=== PATIENT | female | born 1940 | race Caucasian/White ===

== ENCOUNTER → 2016-04-14 | Outpatient (CLI) | payer MEDICARE ==
[~2016-04-14] MED LIST: ASPIRIN CHILDRE81 MG PO; BACTRIM DS 8001 TAB PO; COZAAR100 MG PO; GABAPENTIN100 MG PO; KLOR-CON M2020 ME1 PO; LANTUS INS100 UNITS/ SC; LEVOTHROID SO0.15 MG PO; METFORMIN1000 MG PO; PHENERGAN 25MG.25 M1 PO; PRAVASTATIN 40M40 MG PO; PRAVASTATIN20 MG PO; PROAIR HFA0.09 MG/AC INH; VERAPAMIL HCL120 MG PO
--- NOTE | 2016-04-27 21:36 | RADIOLOGY REPORT PS360 ---
DEXA SCAN.-BONE DENSITY STUDY HIPS AND LUMBAR SPINE HISTORY: Postmenopausal female TECHNIQUE: DEXA scan hip and lumbar spine The most complete data summary and color graphic presentation of the today's ( and any prior ) DEXA findings are available in PACS. Definition and treatment guidelines included. COMPARISON: August 2013 LUMBAR SPINE: Normal bone density L1 vertebral body demonstrates the lowest T score 0.3 with BMD1.169 g/cm sq Overall mean lumbar L1-L4 T score 0.8 with BMD1.27 g/cm sq . 2014 prior DEXA the mean T score 0.4 with BMD was1.235g/cm sq Thus when comparing today's study to the prior exam there's been a 2.9% increasing mean bone density at the lumbar spine. HIPS: Normal bone density Femoral neck density is best predictor of hip fracture risk . Left femoral neck demonstrates the lowest T score -0.7 with BMD0.94 g/cm sq . Averaging region for today's Hip Mean T score 0.8 with BMD1.114 g/cm sq . 2014 DEXA the T score 1.0 with mean BMD1.129 g/cm sq Thus this reflects a 1.3% decreasein overall mean bone density at the hips in the interval. IMPRESSION 1. LUMBAR SPINE: Normal bone density 2.9% increase in bone density lumbar spine versus 2013 DEXA 2. HIPS:Normal bone density. Normal density Overall at hips as well as at femoral necks 1.3% decrease bone density since 2013 as would be anticipated over this period of time WHO criteria for post-menopausal, Women: Normal: T-score at or above -1 SD Osteopenia: T-score between -1 and -2.5 SD Osteoporosis: T-score at or below -2.5 SD
== END ==
LOC: RAD 04-12 09:00
DX: Z78.0 Asymptomatic menopausal state (principal)

== ENCOUNTER 2016-09-26 10:34 | Inpatient (IN) | payer MEDICARE ==
[~2016-09-26] VITALS: Ht 162.6 cm; Wt 109.9 kg
[~2016-09-26 10:34] MED LIST changes: +ALDACTONE 25MG25 MG PO; +LASIX 40MG. TAB40 MG PO; -LEVOTHROID SO0.15 MG PO; +LEVOTHYROXINE0.15 MG PO; +LOSARTAN POTAS100 MG PO; +MULTI-VITAMIN1 EAC2 PO; +MULTIVITAMIN1 SGL PO; +PRAVASTATIN SOD80 M1 PO; +VENTOLIN H0.09 MG/Ac IH; -VERAPAMIL HCL120 MG PO; +[UNRECOGNIZED DRUG - OTHER] PO
--- OUTSIDE RECORDS SUMMARY | 2016-09-26 10:36 | External Medical Summary Rpt ---
Author Author , KATHY CHAVEZ Address Unknown Phone [email or web address] Support Name Relationship Address Phone LUC, Next Of Kin Maude MARIO +1 MARIA DE JESUS LINDSAY [phone] Purpose Continuity of Care Document - 10-31-2012 through 2016 Problems Code Diagnosis DOS Provider Status 786.50 E03.9 HYPOTHYROID ISM, UNSPECIFIED I50.9 HEART FAILURE, UNSPECIFIED M79.1 MYALGIA R11.10 VOMITING, UNSPECIFIED Z12.31 ENCNTR SCREEN MAMMOGRAM FOR MALIGNANT NEOPLASM OF BREAST Z78.0 ASYMPTOMATI C MENOPAUSAL STATE Allergies, Adverse Reactions, Alerts Type Drug Allergy Adverse Reaction to Substance Substance Reaction Severity Beta-Adrenergic Unknown Unknown Michael Codeine Unknown Unknown Lisinopril Unknown Unknown Medications Na ND Rx Da Fi Fi Am Da Di Ph RX Ph St me C No te ll ll ou ys ag ar # ys at rm s nt no ma ic us Or Da si cy ia de te s n re d Sa 63 09 0 No li 80 -0 ne 70 5- Lo 10 20 ng Fl 07 13 er us 5 h Ac 10 ti ML ve Sy ri ng e ON 00 09 0 No DA 64 -0 NS 16 5- Lo ET 08 20 ng RO 02 13 er N 5 HC Ac L ti 4 ve MG /2 ML AL MA 00 09 0 No PA 90 -0 P 41 5- Lo 32 98 20 ng 5 26 13 er MG 1 Ac TA ti BL ve ET Vital Signs 10-31-2012 14:22 Name Value Interpretat Reference Comment ion Range Body 97.5 [degF] Temperature BP 78 mm[Hg] Diastolic BP Systolic 147 mm[Hg] Heart 82 /min Rate/Pulse O2% 98 % Respiratory 20 /min Rate 10-31-2012 12:46 Name Value Interpretat Reference Comment ion Range Body 97.5 [degF] Temperature 10-31-2012 11:59 Name Value Interpretat Reference Comment ion Range BP 89 mm[Hg] Diastolic BP Systolic 163 mm[Hg] Heart 82 /min Rate/Pulse O2% 98 % Respiratory 20 /min Rate Results Labs Lab Lab Date Result Refere Interp Status Commen Order Detail nces retati t Range on Urinalysis dipstick W Reflex Microscopic panel in Urine (08-30-2016 12:00) Bacteri TRACE O complet a 017 ed [Presen 12:00 ce] in Urine sedimen t by Light microsc opy Erythro NONE 0 complet cytes 017 ed [Presen 12:00 ce] in Urine sedimen t by Light microsc opy Epithel 5-10 0#/hp complet ial 017 f - ed cells.s 12:00 5#/hp quamous f [Presen ce] in Urine sedimen t by Microsc opy high power field Urinalysis dipstick W Reflex Microscopic panel in Urine (08-30-2016 12:00) Appeara CLEAR CLEAR complet nce of 017 ed Urine 12:00 Bilirub NEGATIV NEG complet in 017 E ed [Presen 12:00 ce] in Urine by Test strip Erythro NEGATIV NEG complet cytes 017 E ed [Presen 12:00 ce] in Urine Color YELLOW YELLOW complet of 017 ed Urine 12:00 Ketones NEGATIV NEG complet 017 E ed [Presen 12:00 ce] in Urine by Automat ed test strip Mucus NEGATIV NEG complet [Presen 017 E ed ce] in 12:00 Urine sedimen t by Light microsc opy Nitrite NEGATIV NEG complet 017 E ed [Presen 12:00 ce] in Urine by Test strip Urobili 0.2 NEG complet nogen 017 ed [Presen 12:00 ce] in Urine by Test strip Encounters Encounter Start End Date Code Location Performer Type Date Emergency JULI Sandra MD (ER) 3 12:02 3 14:23 [facility]
--- OUTSIDE RECORDS SUMMARY | 2016-09-26 10:36 | External Medical Summary Rpt ---
Author Author , KATHY CHAVEZ Address Unknown Phone [email or web address] Support Name Relationship Address Phone LUC, Next Of Kin Maude MARIO +1 MARIA DE JESUS LINDSAY [phone] Purpose Continuity of Care Document - 10-31-2012 [...] Sandra MD (ER) 3 12:02 3 14:23 [facility]
--- OUTSIDE RECORDS SUMMARY | 2016-09-26 10:37 | External Medical Summary Rpt ---
Demographics Preferred Language Icelandic Marital Status Unknown Jew Affiliation Unknown Race Unknown Ethnic Group Unknown Author Author , KATHY CHAVEZ Address Unknown Phone Immunization Unable to retrieve immunization data due to connection failure with Immunization Registry. Please try again later.
--- OUTSIDE RECORDS SUMMARY | 2016-09-26 10:37 | External Medical Summary Rpt ---
Demographics Preferred Language Persian Marital Status Unknown Mormon Affiliation Unknown Race Unknown Ethnic Group Unknown Author Author , KATHY CHAVEZ Address Unknown Phone Immunization Unable to retrieve immunization data due to connection failure with Immunization Registry. Please try again later.
--- OUTSIDE RECORDS SUMMARY | 2016-09-26 10:38 | External Medical Summary Rpt ---
Author Author KATHY Raina, [employer] Address Unknown Phone Unavailable Results Basic metabolic panel in Blood Observa Value Referen Units Interpr Notes Date tion ce etation Range Urea 7 - 18 mg/dL High Sep 25 nitrogen NOTIFICAT 2017 9:16 [Mass/vol ION AM ume] in RESULT Serum or Plasma Calcium 8.5 - mg/dL Normal No Sep 25 [Mass/vol 10.1 informati 2016 9:16 ume] in on in AM Serum or source Plasma data Chloride 98 - 107 mmoL/L Low No Sep 25 [Moles/vo informati 2016 9:16 lume] in on in AM Serum or source Plasma data Carbon 21.0 - mmoL/L Normal No Sep 25 dioxide, 32.0 informati 2016 9:16 total on in AM [Moles/vo source lume] in data Serum or Plasma Creatinin 0.55 - mg/dL High No Sep 25 e 1.02 informati 2017 9:16 [Mass/vol on in AM ume] in source Serum or data Plasma Estimated 59- ML/MIN Low alert REFERENCE Sep 25 RANGE: 2017 9:16 glomerula >60 AM r ML/MIN/1. filtratio 73 SQUARE n rate METERSIf (GF this patient is -A merican, then multiply theresult by 1.210. Glucose 74 - 106 mg/dL High No Sep 25 [Mass/vol informati 2016 9:16 ume] in on in AM Serum or source Plasma data Potassium 3.5 - 5.1 mmoL/L Normal No Sep 25 informati 2016 9:16 [Moles/vo on in AM lume] in source Serum or data Plasma Sodium 136 - 145 mmoL/L Low No Sep 25 [Moles/vo informati 2016 9:16 lume] in on in AM Serum or source Plasma data Comprehensive metabolic 2000 panel in Serum or Plasma Observa Value Referen Units Interpr Notes Date ti ce etation Range Albumin/G 1.1 - 1.8 No Normal No Sep 20 lobulin informati informati 2016 8:13 [Mass on in on in AM ratio] in source source Serum or data data Plasma Albumin 3.4 - 5.0 gm/dL Normal No Sep 20 [Mass/vol informati 2016 8:13 ume] in on in AM Serum or source Plasma data Alkaline 46 - 116 U/L Normal No Sep 20 phosphata informati 2016 8:13 se on in AM [Enzymati source c data activity/ volume] in Serum or Plasma Bilirubin 0.2 - 1.0 mg/dL Normal No Sep 20 .total informati 2016 8:13 [Mass/vol on in AM ume] in source Serum or data Plasma Urea 7 - 18 mg/dL High No Sep 20 nitrogen informati 2016 8:13 [Mass/vol on in AM ume] in source Serum or data Plasma Calcium 8.5 - mg/dL Normal No Sep 20 [Mass/vol 10.1 informati 2016 8:13 ume] in on in AM Serum or source Plasma data Chloride 98 - 107 mmoL/L Low No Sep 20 [Moles/vo informati 2016 8:13 lume] in on in AM Serum or source Plasma data Carbon 21.0 - mmoL/L Normal No Sep 20 dioxide, 32.0 informati 2016 8:13 total on in AM [Moles/vo source lume] in data Serum or Plasma Creatinin 0.55 - mg/dL High No Sep 20 e 1.02 informati 2016 8:13 [Mass/vol on in AM ume] in source Serum or data Plasma Estimated 59- ML/MIN Low alert REFERENCE Sep 20 RANGE: 2017 8:13 glomerula >60 AM r ML/MIN/1. filtratio 73 SQUARE n rate METERSIf (GF this patient is -A merican, then multiply theresult by 1.210. Globulin 1.3 - 3.2 gm/dL High No Sep 20 [Mass/vol informati 2016 8:13 ume] in on in AM Serum source data Glucose 74 - 106 mg/dL High No Sep 20 [Mass/vol informati 2016 8:13 ume] in on in AM Serum or source Plasma data Potassium 3.5 - 5.1 mmoL/L Normal No Sep 20 informati 2016 8:13 [Moles/vo on in AM lume] in source Serum or data Plasma Sodium 136 - 145 mmoL/L Low No Sep 20 [Moles/vo informati 2016 8:13 lume] in on in AM Serum or source Plasma data Aspartate 15 - 37 U/L Normal No Sep 20 informati 2016 8:13 aminotran on in AM sferase source [Enzymati data c activity/ volume] in Serum or Plasma Alanine 12 - 78 U/L Normal No Sep 20 aminotran informati 2016 8:13 sferase on in AM [Enzymati source c data activity/ volume] in Serum or Plasma Protein 6.4 - 8.2 gm/dL Normal No Sep 20 [Mass/vol informati 2016 8:13 ume] in on in AM Serum or source Plasma data Creatine kinase [Enzymatic activity/volume] in Serum or Plasma Observa Value Referen Units Interpr Notes Date tion ce etation Range Creatine 26 - 192 U/L Normal No Sep 20 kinase informati 2016 8:13 [Enzymati on in AM c source activity/ data volume] in Serum or Plasma Magnesium [Moles/volume] in Unspecified specimen Observa Value Referen Units Interpr Notes Date tion ce etation Range Magnesium 1.4 - 2.2 mg/dL Normal No Sep 20 informati 2016 8:13 [Moles/vo on in AM lume] in source Unspecifi data ed specimen Thyrotropin [Units/volume] in Serum or Plasma Observa Value Referen Units Interpr Notes Date tion ce etation Range Thyrotrop 0.358 - uIU/ml No No Sep 20 in 3.740 informati informati 2016 8:13 [Units/vo on in on in AM lume] in source source Serum or data data Plasma CBC W Auto Differential panel in Blood Observa Value Referen Units Interpr Notes Date tion ce etation Range Basophils 0 - 0.2 K/MM3 Normal No Sep 20 informati 2016 8:13 [#/volume on in AM ] in source Blood by data Automated count Basophils 0.1 - 2.0 % Normal No Sep 20 informati 2016 8:13 leukocyte on in AM s in source Blood by data Automated count Eosinophi 0.0 - 0.4 K/mm3 Normal No Sep 20 ls informati 2016 8:13 [#/volume on in AM ] in source Blood by data Automated count Eosinophi 0.1 - % Normal No Sep 20 ls/100 12.0 informati 2017 8:13 leukocyte on in AM s in source Blood by data Automated count Granulocy 1.8 - 7.8 K/mm3 Normal No Sep 20 darin informati 2016 8:13 [#/volume on in AM ] in source Blood by data Automated count Granulocy 37.0 - % Normal No Sep 20 darin/100 80.0 informati 2016 8:13 leukocyte on in AM s in source Blood by data Automated count Hematocri 37.0 - % Low No Sep 20 t [Volume 47.0 informati 2016 8:13 on in AM Fraction] source of Blood data Hemoglobi 12.2 - g/dL Low No Sep 20 n 16.2 informati 2016 8:13 [Mass/vol on in AM ume] in source Blood data Lymphocyt 0.7 - 4.5 K/mm3 Normal No Sep 20 es informati 2016 8:13 [#/volume on in AM ] in source Unspecifi data ed specimen by Automated count Lymphocyt 10 - 50.0 % Normal No Sep 20 es informati 2016 8:13 [#/volume on in AM ] in source Unspecifi data ed specimen by Automated count Erythrocy 27 - 31.2 pg Normal No Sep 20 te mean informati 2016 8:13 corpuscul on in AM ar source hemoglobi data n [Entitic mass] Erythrocy 31.8 - g/dl Low No Sep 20 te mean 35.4 informati 2016 8:13 corpuscul on in AM ar source hemoglobi data n concentra tion [Mass/vol ume] by Automated count Erythrocy 82.2 - fl Normal No Sep 20 te mean 97.8 informati 2016 8:13 corpuscul on in AM ar volume source [Entitic data volume] by Automated count Monocytes 0.1 - 1.0 K/mm3 Normal No Sep 20 informati 2017 8:13 [#/volume on in AM ] in source Blood by data Automated count Monocytes 1.7 - 9.3 % Normal No Sep 20 / informati 2017 8:13 leukocyte on in AM s in source Blood by data Automated count Platelet 7.4 - fl Normal No Sep 20 mean 10.4 informati 2016 8:13 volume on in AM [Entitic source volume] data in Blood by Automated count Platelets 142 - 424 K/mm3 Normal No Sep 20 informati 2017 8:13 [#/volume on in AM ] in source Blood data Erythrocy 4.2 - 5.4 M/mm3 Low No Sep 20 darin informati 2016 8:13 [#/volume on in AM ] in source Amniotic data fluid Erythrocy 11.5 - % Normal No Sep 20 te 17.5 informati 2017 8:13 distribut on in AM ion width source [Entitic data volume] by Automated count Leukocyte 4.8 - K/MM3 Normal No Sep 20 s 10.8 informati 2016 8:13 [#/volume on in AM ] in source Blood data Basic metabolic panel in Blood Observa Value Referen Units Interpr Notes Date tion ce etation Range Urea 7 - 18 mg/dL High No Sep 04 nitrogen informati 2016 9:00 [Mass/vol on in AM ume] in source Serum or data Plasma Calcium 8.5 - mg/dL Normal No Sep 04 [Mass/vol 10.1 informati 2016 9:00 ume] in on in AM Serum or source Plasma data Chloride 98 - 107 mmoL/L Normal No Sep 04 [Moles/vo informati 2016 9:00 lume] in on in AM Serum or source Plasma data Carbon 21.0 - mmoL/L Normal No Sep 04 dioxide, 32.0 informati 2016 9:00 total on in AM [Moles/vo source lume] in data Serum or Plasma Creatinin 0.55 - mg/dL High No Sep 04 e 1.02 informati 2017 9:00 [Mass/vol on in AM ume] in source Serum or data Plasma Estimated 59- ML/MIN Low REFERENCE Sep 04 RANGE: 2017 9:00 glomerula >60 AM r ML/MIN/1. filtratio 73 SQUARE n rate METERSIf (GF this patient is -A merican, then multiply theresult by 1.210. Glucose 74 - 106 mg/dL High No Sep 04 [Mass/vol informati 2016 9:00 ume] in on in AM Serum or source Plasma data Potassium 3.5 - 5.1 mmoL/L Normal No Sep 04 informati 2016 9:00 [Moles/vo on in AM lume] in source Serum or data Plasma Sodium 136 - 145 mmoL/L Normal No Sep 04 [Moles/vo informati 2016 9:00 lume] in on in AM Serum or source Plasma data Glucose [Mass/volume] in Capillary blood by Glucometer Observa Value Referen Units Interpr Notes Date tion ce etation Range Glucose 70 - 110 mg/dl High No Sep 01 [Mass/vol informati 2017 6:51 ume] in on in AM Capillary source blood by data Glucomete r Basic metabolic panel in Blood Observa Value Referen Units Interpr Notes Date tion ce etation Range Urea 7 - 18 mg/dL High No Sep 01 nitrogen informati 2016 6:10 [Mass/vol on in AM ume] in source Serum or data Plasma Calcium 8.5 - mg/dL Normal No Sep 01 [Mass/vol 10.1 informati 2017 6:10 ume] in on in AM Serum or source Plasma data Chloride 98 - 107 mmoL/L Normal No Sep 01 [Moles/vo informati 2016 6:10 lume] in on in AM Serum or source Plasma data Carbon 21.0 - mmoL/L Normal No Sep 01 dioxide, 32.0 informati 2017 6:10 total on in AM [Moles/vo source lume] in data Serum or Plasma Creatinin 0.55 - mg/dL High No Sep 01 e 1.02 informati 2017 6:10 [Mass/vol on in AM ume] in source Serum or data Plasma Creatinin 50 - 200 ML/MIN Normal No Sep 01 e renal informati 2017 6:10 clearance on in AM source predicted data by Cockcroft -Gault formula Estimated 59- ML/MIN Low REFERENCE Sep 01 RANGE: 2017 6:10 glomerula >60 AM r ML/MIN/1. filtratio 73 SQUARE n rate METERSIf (GF this patient is -A merican, then multiply theresult by 1.210. Glucose 74 - 106 mg/dL High No Sep 01 [Mass/vol informati 2017 6:10 ume] in on in AM Serum or source Plasma data Potassium 3.5 - 5.1 mmoL/L Normal No Sep 01 informati 2016 6:10 [Moles/vo on in AM lume] in source Serum or data Plasma Sodium 136 - 145 mmoL/L Normal No Sep 01 [Moles/vo informati 2017 6:10 lume] in on in AM Serum or source Plasma data CBC W Auto Differential panel in Blood Observa Value Referen Units Interpr Notes Date tion ce etation Range Basophils 0 - 0.2 K/MM3 Normal No Sep 01 informati 2017 6:10 [#/volume on in AM ] in source Blood by data Automated count Basophils 0.1 - 2.0 % Normal No Sep 01 informati 2017 6:10 leukocyte on in AM s in source Blood by data Automated count Eosinophi 0.0 - 0.4 K/mm3 Normal No Sep 01 ls informati 2016 6:10 [#/volume on in AM ] in source Blood by data Automated count Eosinophi 0.1 - % Normal No Sep 01 ls/100 12.0 informati 2017 6:10 leukocyte on in AM s in source Blood by data Automated count Granulocy 1.8 - 7.8 K/mm3 Normal No Sep 01 darin informati 2017 6:10 [#/volume on in AM ] in source Blood by data Automated count Granulocy 37.0 - % Normal No Sep 01 darin/100 80.0 informati 2017 6:10 leukocyte on in AM s in source Blood by data Automated count Hematocri 37.0 - % Low No Sep 01 t [Volume 47.0 informati 2016 6:10 on in AM Fraction] source of Blood data Hemoglobi 12.2 - g/dL Low No Sep 01 n 16.2 informati 2017 6:10 [Mass/vol on in AM ume] in source Blood data Lymphocyt 0.7 - 4.5 K/mm3 Normal No Sep 01 es informati 2017 6:10 [#/volume on in AM ] in source Unspecifi data ed specimen by Automated count Lymphocyt 10 - 50.0 % Normal No Sep 01 es informati 2017 6:10 [#/volume on in AM ] in source Unspecifi data ed specimen by Automated count Erythrocy 27 - 31.2 pg Normal No Sep 01 te mean informati 2017 6:10 corpuscul on in AM ar source hemoglobi data n [Entitic mass] Erythrocy 31.8 - g/dl Normal No Sep 01 te mean 35.4 informati 2017 6:10 corpuscul on in AM ar source hemoglobi data n concentra tion [Mass/vol ume] by Automated count Erythrocy 82.2 - fl Normal No Sep 01 te mean 97.8 informati 2017 6:10 corpuscul on in AM ar volume source [Entitic data volume] by Automated count Monocytes 0.1 - 1.0 K/mm3 Normal No Sep 01 informati 2017 6:10 [#/volume on in AM ] in source Blood by data Automated count Monocytes 1.7 - 9.3 % Normal No Aug 7 /100 informati 2017 6:10 leukocyte on in AM s in source Blood by data Automated count Platelet 7.4 - fl Normal No Sep 01 mean 10.4 informati 2017 6:10 volume on in AM [Entitic source volume] data in Blood by Automated count Platelets 142 - 424 K/mm3 Normal No Sep 01 informati 2017 6:10 [#/volume on in AM ] in source Blood data Erythrocy 4.2 - 5.4 M/mm3 Low No Sep 01 darin informati 2017 6:10 [#/volume on in AM ] in source Amniotic data fluid Erythrocy 11.5 - % Normal No Sep 01 te 17.5 informati 2017 6:10 distribut on in AM ion width source [Entitic data volume] by Automated count Leukocyte 4.8 - K/MM3 Normal No Sep 01 s 10.8 informati 2016 6:10 [#/volume on in AM ] in source Blood data Glucose [Mass/volume] in Capillary blood by Glucometer Observa Value Referen Units Interpr Notes Date tion ce etation Range Glucose 70 - 110 mg/dl High No Aug 31 [Mass/vol informati 2017 8:28 ume] in on in PM Capillary source blood by data Glucomete r Glucose [Mass/volume] in Capillary blood by Glucometer Observa Value Referen Units Interpr Notes Date tion ce etation Range Glucose 70 - 110 mg/dl High No Aug 31 [Mass/vol informati 2016 5:07 ume] in on in PM Capillary source blood by data Glucomete r Glucose [Mass/volume] in Capillary blood by Glucometer Observa Value Referen Units Interpr Notes Date tion ce etation Range Glucose 70 - 110 mg/dl High No Aug 31 [Mass/vol informati 2016 ume] in on in 11:58 AM Capillary source blood by data Glucomete r Basic metabolic panel in Blood Observa Value Referen Units Interpr Notes Date tion ce etation Range Urea 7 - 18 mg/dL High No Aug 6 nitrogen informati 2017 6:15 [Mass/vol on in AM ume] in source Serum or data Plasma Calcium 8.5 - mg/dL Normal No Aug 31 [Mass/vol 10.1 informati 2017 6:15 ume] in on in AM Serum or source Plasma data Chloride 98 - 107 mmoL/L Normal No Aug 31 [Moles/vo informati 2016 6:15 lume] in on in AM Serum or source Plasma data Carbon 21.0 - mmoL/L Normal No Aug 31 dioxide, 32.0 informati 2016 6:15 total on in AM [Moles/vo source lume] in data Serum or Plasma Creatinin 0.55 - mg/dL High No Aug 31 e 1.02 informati 2016 6:15 [Mass/vol on in AM ume] in source Serum or data Plasma Creatinin 50 - 200 ML/MIN Normal No Aug 31 e renal informati 2017 6:15 clearance on in AM source predicted data by Cockcroft -Gault formula Estimated 59- ML/MIN Low REFERENCE Aug 31 RANGE: 2017 6:15 glomerula >60 AM r ML/MIN/1. filtratio 73 SQUARE n rate METERSIf (GF this patient is -A merican, then multiply theresult by 1.210. Glucose 74 - 106 mg/dL High No Aug 31 [Mass/vol informati 2016 6:15 ume] in on in AM Serum or source Plasma data Potassium 3.5 - 5.1 mmoL/L Normal No Aug 31 informati 2016 6:15 [Moles/vo on in AM lume] in source Serum or data Plasma Sodium 136 - 145 mmoL/L Normal No Aug 31 [Moles/vo informati 2016 6:15 lume] in on in AM Serum or source Plasma data Glucose [Mass/volume] in Capillary blood by Glucometer Observa Value Referen Units Interpr Notes Date tion ce etation Range Glucose 70 - 110 mg/dl High No Aug 31 [Mass/vol informati 2016 6:08 ume] in on in AM Capillary source blood by data Glucomete r Glucose [Mass/volume] in Capillary blood by Glucometer Observa Value Referen Units Interpr Notes Date tion ce etation Range Glucose 70 - 110 mg/dl High No Aug 30 [Mass/vol informati 2016 8:38 ume] in on in PM Capillary source blood by data Glucomete r Glucose [Mass/volume] in Capillary blood by Glucometer Observa Value Referen Units Interpr Notes Date tion ce etation Range Glucose 70 - 110 mg/dl High No Aug 30 [Mass/vol informati 2016 4:59 ume] in on in PM Capillary source blood by data Glucomete r Urinalysis dipstick W Reflex Microscopic panel in Urine Observa Value Referen Units Interpr Notes Date tion ce etation Range Appeara CLEAR CLEAR No No No Aug 30 nce of informa informa informa 2016 Urine tion in tion in tion in 12:00 source source source PM data data data Bacteri TRACE O No No No Aug 30 a informa informa informa 2016 [Presen tion in tion in tion in 12:00 ce] in source source source PM Urine data data data sedimen t by Light microsc opy Bilirub NEGATIV NEG No No No Aug 30 in E informa informa informa 2016 [Presen tion in tion in tion in 12:00 ce] in source source source PM Urine data data data by Test strip Erythro NEGATIV NEG No No No Aug 30 cytes E informa informa informa 2016 [Presen tion in tion in tion in 12:00 ce] in source source source PM Urine data data data Color YELLOW YELLOW No No No Aug 30 of informa informa informa 2016 Urine tion in tion in tion in 12:00 source source source PM data data data Glucose NEG No No No Aug 30 [Mass/vol informati informati informati 2016 ume] in on in on in on in 12:00 PM Urine by source source source Test data data data strip Ketones NEGATIV NEG mg/dL No No Aug 30 E informa informa 2016 [Presen tion in tion in 12:00 ce] in source source PM Urine data data by Automat ed test strip Mucus NEGATIV NEG No No No Aug 30 [Presen E informa informa informa 2016 ce] in tion in tion in tion in 12:00 Urine source source source PM sedimen data data data t by Light microsc opy Nitrite NEGATIV NEG No No No Aug 30 E informa informa informa 2016 [Presen tion in tion in tion in 12:00 ce] in source source source PM Urine data data data by Test strip pH of 5.0 - 8.5 No Normal No Aug 30 Urine informati informati 2017 on in on in 12:00 PM source source data data Protein NEG mg/dL No No Aug 30 [Mass/vol informati informati 2017 ume] in on in on in 12:00 PM Urine by source source Automated data data test strip Erythro NONE 0 rbc/hpf No No Aug 30 cytes informa informa 2016 [Presen tion in tion in 12:00 ce] in source source PM Urine data data sedimen t by Light microsc opy Specific 1.005 - No Normal No Aug 30 gravity 1.030 informati informati 2017 of Urine on in on in 12:00 PM source source data data Epithel 5-10 0 - 5 #/hpf No No Aug 30 ial informa informa 2017 cells.s tion in tion in 12:00 quamous source source PM data data [Presen ce] in Urine sedimen t by Microsc opy high power field Urobili 0.2 NEG E.U./dL No No Aug 30 nogen informa informa 2016 [Presen tion in tion in 12:00 ce] in source source PM Urine data data by Test strip Leukocyte O wbc/hpf No No Aug 30 s informati informati 2017 [#/volume on in on in 12:00 PM ] in source source Urine data data Urinalysis dipstick W Reflex Microscopic panel in Urine Observa Value Referen Units Interpr Notes Date tion ce etation Range Appeara CLEAR CLEAR No No No Aug 30 nce of informa informa informa 2017 Urine tion in tion in tion in 12:00 source source source PM data data data Bilirub NEGATIV NEG No No No Aug 30 in E informa informa informa 2016 [Presen tion in tion in tion in 12:00 ce] in source source source PM Urine data data data by Test strip Erythro NEGATIV NEG No No No Aug 30 cytes E informa informa informa 2016 [Presen tion in tion in tion in 12:00 ce] in source source source PM Urine data data data Color YELLOW YELLOW No No No Aug 30 of informa informa informa 2017 Urine tion in tion in tion in 12:00 source source source PM data data data Glucose NEG No No No Aug 30 [Mass/vol informati informati informati 2017 ume] in on in on in on in 12:00 PM Urine by source source source Test data data data strip Ketones NEGATIV NEG mg/dL No No Aug 30 E informa informa 2017 [Presen tion in tion in 12:00 ce] in source source PM Urine data data by Automat ed test strip Mucus NEGATIV NEG No No No Aug 30 [Presen E informa informa informa 2016 ce] in tion in tion in tion in 12:00 Urine source source source PM sedimen data data data t by Light microsc opy Nitrite NEGATIV NEG No No No Aug 30 E informa informa informa 2016 [Presen tion in tion in tion in 12:00 ce] in source source source PM Urine data data data by Test strip pH of 5.0 - 8.5 No Normal No Aug 30 Urine informati informati 2017 on in on in 12:00 PM source source data data Protein NEG mg/dL No No Aug 30 [Mass/vol informati informati 2016 ume] in on in on in 12:00 PM Urine by source source Automated data data test strip Specific 1.005 - No Normal No Aug 30 gravity 1.030 informati informati 2017 of Urine on in on in 12:00 PM source source data data Urobili 0.2 NEG E.U./dL No No Aug 30 nogen informa informa 2016 [Presen tion in tion in 12:00 ce] in source source PM Urine data data by Test strip Natriutietic peptide B [Mass/volume] in Serum or Plasma Observa Value Referen Units Interpr Notes Date etation Range Natriutie 0 - 100 pg/mL High No Aug 30 tic informati 2017 9:00 peptide B on in AM source [Mass/vol data ume] in Serum or Plasma Amylase [Enzymatic activity/volume] in Serum or Plasma Observa Value Referen Units Interpr Notes ce etation Range Amylase 25 - 115 U/L Normal No Aug 30 [Enzymati informati 2016 9:00 c on in AM activity/ source volume] data in Serum or Plasma Lipase [Enzymatic activity/volume] in Serum or Plasma Observa Value Referen Units Interpr Notes etation Range Lipase 73 - 393 U/L Normal No Aug 30 [Enzymati informati 2016 9:00 c on in AM activity/ source volume] data in Serum or Plasma CBC W Auto Differential panel in Blood Observa Value Referen Units Interpr Notes Date ce etation Range Basophils 0 - 0.2 K/MM3 Normal No Aug 30 informati 2016 9:00 [#/volume on in AM ] in source Blood by data Automated count Basophils 0.1 - 2.0 % Normal No Aug 30 /100 informati 2016 9:00 leukocyte on in AM s in source Blood by data Automated count Eosinophi 0.0 - 0.4 K/mm3 Normal No Aug 30 ls informati 2016 9:00 [#/volume on in AM ] in source Blood by data Automated count Eosinophi 0.1 - % Normal No Aug 30 ls/100 12.0 informati 2016 9:00 leukocyte on in AM s in source Blood by data Automated count Granulocy 1.8 - 7.8 K/mm3 Normal No Aug 30 darin informati 2016 9:00 [#/volume on in AM ] in source Blood by data Automated count Granulocy 37.0 - % Normal No Aug 30 darin/100 80.0 informati 2016 9:00 leukocyte on in AM s in source Blood by data Automated count Hematocri 37.0 - % Normal No Aug 30 t [Volume 47.0 informati 2016 9:00 on in AM Fraction] source of Blood data Hemoglobi 12.2 - g/dL Low No Aug 30 n 16.2 informati 2016 9:00 [Mass/vol on in AM ume] in source Blood data Lymphocyt 0.7 - 4.5 K/mm3 Normal No Aug 30 es informati 2016 9:00 [#/volume on in AM ] in source Unspecifi data ed specimen by Automated count Lymphocyt 10 - 50.0 % Normal No Aug 30 es informati 2016 9:00 [#/volume on in AM ] in source Unspecifi data ed specimen by Automated count Erythrocy 27 - 31.2 pg Normal No Aug 30 te mean informati 2016 9:00 corpuscul on in AM ar source hemoglobi data n [Entitic mass] Erythrocy 31.8 - g/dl Normal No Aug 30 te mean 35.4 informati 2016 9:00 corpuscul on in AM ar source hemoglobi data n concentra tion [Mass/vol ume] by Automated count Erythrocy 82.2 - fl Normal No Aug 30 te mean 97.8 informati 2016 9:00 corpuscul on in AM ar volume source [Entitic data volume] by Automated count Monocytes 0.1 - 1.0 K/mm3 Normal No Aug 30 informati 2016 9:00 [#/volume on in AM ] in source Blood by data Automated count Monocytes 1.7 - 9.3 % Normal No Aug 30 /100 informati 2016 9:00 leukocyte on in AM s in source Blood by data Automated count Platelet 7.4 - fl Low No Aug 30 mean 10.4 informati 2016 9:00 volume on in AM [Entitic source volume] data in Blood by Automated count Platelets 142 - 424 K/mm3 Normal No Aug 30 inform2016 9:00 [#/volume on in AM ] in source Blood data Erythrocy 4.2 - 5.4 M/mm3 Normal No Aug 30 darin informati 2016 9:00 [#/volume on in AM ] in source Amniotic data fluid Erythrocy 11.5 - % Normal No Aug 30 te 17.5 informati 2016 9:00 distribut on in AM ion width source [Entitic data volume] by Automated count Leukocyte 4.8 - K/MM3 Normal No Aug 30 s 10.8 informati 2016 9:00 [#/volume on in AM ] in source Blood data
--- NOTE | 2016-09-26 12:27 | RADIOLOGY REPORT PS360 ---
CHEST(2 VIEWS-NOT PORTABLE) COMPARISON: AP upright chest 08/30/2016 HISTORY: Follow-up congestive heart failure TECHNIQUE: PA and lateral chest FINDINGS: There is been marked interval improvement from previous study of 30 August.. There has been decrease in overall cardiac size and there has been clearing of the pulmonary congestion and interstitial edema and small bilateral effusions. The lung jansen are clear of infiltrate this time. The vascularity is normal. IMPRESSION: Interval resolution of congestive heart failure no acute chest pathology noted this time, borderline cardiomegaly remains
[2016-09-26 13:05] VITALS: BP 157/59
--- NOTE | 2016-09-26 13:43 | PHARMACY CLINIC NOTE ---
Patient Demographics Patient Demographics Admission date: 09/26/16 Date: 09/26/16 Time: 1343 Allergies Coded Allergies: lisinopril (Severe, COUGH 04/25/16) Beta-Blockers (Beta-Adrenergic Bloc (Intermediate, BRADYCARDIA 04/25/16) codeine (Intermediate, NA-NAUSEA/VOMITING 04/25/16) ticagrelor (From [facility]) (08/30/16) HEIGHT- FT: 5 IN: 4.00 K.822 VTE General Information Disclaimer The following section includes nursing documentation that has been pulled in for pharmacy review. VTE prophylaxis NQF [id number] VTE prophylaxis ordered? Yes Type of prophylaxis/treatment: NIDIA at 1348
[2016-09-26 14:13] VITALS: BP 157/59
[2016-09-26] MEDS ORDERED: NITROGLYCERIN0.4 MG SL (15:06)
[2016-09-26] MEDS ORDERED: IPRATROPIUM BROM3 M1 IH (15:08)
[2016-09-26] MEDS ORDERED: LOSARTAN POTAS100 MG PO (15:21)
[2016-09-26] MEDS ORDERED: ALDACTONE 25MG25 MG PO (15:22)
[2016-09-26] MEDS ORDERED: PRAVASTATIN SOD80 M1 PO (15:22)
[2016-09-26 15:33] VITALS: BP 129/54
--- NOTE | 2016-09-26 17:59 | RADIOLOGY REPORT PS360 ---
PROCEDURE: 2-D M-mode and color Doppler study INDICATIONS FOR THE TEST: Chest pain COPD Heart Murmur Tobacco Smoking Palpitations FatigueX Syncope Edema HypertensionXDiabetes MellitusX Rheumatic Fever SOB GORDILLO Obesity Hyperlipidemia Family History HD Additional History CHF CAD STENTS PATIENT INFORMATION HEIGHT: 62 WEIGHT:238 GENDER: Female B/P:115/57 2-D/M-MODE INTERPRETATION: 2-D MEASUREMENTS OBSERVED VALUES IN CMS Right Ventricular Dimension (RVDd) 1.6 Interventricular Septum (Thickness)(IVsd) 1.0 Left Ventricular Internal Dimensions(LVIDd) 4.3 Left Ventricular Posterior Wall (Thickness)(LVPWd) 1.0 Aortic Root 2.0 Aortic Cusp Separation 1.7 Left Atrial Dimensions (LAD) 3.7 2D 1. Technically very difficult study, because of the patient's factor and poor acoustic windows, repeat study with definity contrast is recommended. 2. Left atrium is moderately enlarged, left ventricle is normal size, there is mild concentric left ventricular hypertrophy, visually estimated ejection fraction is approximately 45-50%, endocardial surfaces are very poorly visualized to comment on segmental wall motion analysis. 3. The right atrium and right ventricle are normal size and contractility. 4. The aortic valve is minimally thickened and calcified, there is no aortic stenosis. 5. The mitral valve leaflets are minimally thickened, leaflets are not well visualized. 6. The tricuspid valve is grossly normal. 7. The pulmonic valve is poorly visualized. 8. No significant pericardial effusion noted. DOPPLER INTERROGATION: Doppler interrogation of the aortic mitral and tricuspid valvular presence of moderate mitral and mild tricuspid regurgitation, tricuspid regurgitant jet velocity is insufficient for calculation of the right ventricular systolic pressure, grade 1 diastolic dysfunction seen without tissue Doppler evidence of raised left atrial pressure. CONCLUSION: 1. Technically difficult study, a repeat study with Definity contrast is recommended. 2. Moderately enlarged left atrium, normal left ventricular size, visually estimated ejection fraction of approximately 45-50%, as described above. Grade 1 diastolic dysfunction seen without tissue Doppler evidence of raised left atrial pressure. 3. Moderate mitral and mild tricuspid regurgitation. 4. No significant pericardial effusion noted.
[2016-09-26 19:57] VITALS: BP 116/52
[2016-09-26 20:20] VITALS: BP 116/52
[2016-09-26 22:50] LABS: URINE BILIRUBIN - DIPSTICK NEGATIVE (NEG); URINE BLOOD NEGATIVE (NEG)
[2016-09-26 23:21] LABS: URINE SQUAMOUS CELLS OCC #/hpf (0-5)
[2016-09-27] VITALS (8 sets, daily range): BP systolic 119–150; BP diastolic 49–58
[2016-09-27 06:32] LABS: LYMPH % 19.2 % (10-50.0)
[2016-09-27 07:02] LABS: HEMOGLOBIN 9.6 g/dL (12.2-16.2)
--- NOTE | 2016-09-27 07:57 | ACUTE CARE PROGRESS NOTE (QUA) ---
Progress Notes Subjective Date 09/27/16 Time 0755 Note Overall patient feels better. More energy. Labs reviewed showing improved creatinine. Blood pressure and pulse are well controlled. Lungs are clear, no crackles. Heart irregular. Abdomen soft, patient alert and pleasant and oriented. Objective Findings Last VS-Temp:97.7 B/P:130/52 Pulse:73 Resp:20 SaO2:93 ROOM AIR Last weight lbs:239 oz:0 K.409 Method:Bed Scales Assessment/Plan Problem List 1. Acute kidney injury 2. Systolic congestive heart failure with reduced left ventricular function, NYHA class 2 3. Morbid obesity with BMI of 40.0-44.9, adult Patient condition Improving Plan: continue current care, continue low-dose IV fluids. Watch labs tomorrow. [place] oral cardiac medicines tomorrow This inpt stay is expected to cross 2 MNs from start of care Yes at 0756
--- NOTE | 2016-09-27 10:46 | RADIOLOGY REPORT PS360 ---
[id number] COMPARISON: CT scan abdomen pelvis 08/30/2016 HISTORY: Possible urinary incontinence TECHNIQUE: Targeted ultrasound both kidneys FINDINGS: The right kidney measures 10.1 x 4.4 x 3.4 cm and there is mild uniform cortical thinning with is no hydronephrosis or other abnormality. The left kidney measures 10.8 x 5.3 x 4.0 cm and shows a good cortical medullary junction with no hydronephrosis. There are somewhat decreased vascular flow to each kidney. IMPRESSION: Normal size kidneys with no hydronephrosis or significant cortical scarring or other abnormality other than slightly decreased flow to each kidney not unexpected at this age
[2016-09-28] VITALS (9 sets, daily range): BP systolic 118–154; BP diastolic 48–72
[2016-09-28 06:55] LABS: HEMOGLOBIN 10.4 g/dL (12.2-16.2); LYMPH % 24.3 % (10-50.0)
--- NOTE | 2016-09-28 08:55 | ACUTE CARE PROGRESS NOTE (QUA) ---
Progress Notes Subjective Date 09/28/16 Time 0720 Note Patient is sleeping upon entering the room this morning. Awakens and states she is "not feeling so well." She has no specific complaint. Significant improvement of creatinine with hydration, noted at 1.8 this morning. Alert and oriented 3. Irregular rate. Pulses 1+ bilaterally. No edema. Lungs sounds clear and equal throughout. Objective Findings Last VS-Temp:97.6 B/P:138/59 Pulse:89 Resp:16 SaO2:93 ROOM AIR Last weight lbs:239 oz:0 K.410 Method:Bed Scales Reviewed: medications, vital signs, lab results, radiology report Assessment/Plan Problem List 1. Acute kidney injury 2. Systolic congestive heart failure with reduced left ventricular function, NYHA class 2 3. Morbid obesity with BMI of 40.0-44.9, adult Patient condition Improving Plan: see above This inpt stay is expected to cross 2 MNs from start of care Yes Comments: Continue IV hydration. Repeat BMP in the morning. Patient has failed management with diuretics and has NYHA class II heart failure which makes her a candidate for Entresto therapy. Will initiate Entresto today and monitor her response. If she tolerates well we will DC home tomorrow on Entresto with close outpatient follow-up. at 0900
[2016-09-29 04:00] VITALS: BP 153/45
--- NOTE | 2016-09-29 07:24 | ACUTE CARE PROGRESS NOTE (QUA) ---
Progress Notes Subjective Date 09/29/16 Time 0724 Note Patient feels better. Minimal nausea. No vomiting this morning. Alert, awake, no edema. Lungs are clear, heart rate regular. Objective Findings Last VS-Temp:98.7 B/P:153/45 Pulse:86 Resp:16 SaO2:91 ROOM AIR Last weight lbs:242 oz:3 K.854 Method:Bed Scales Assessment/Plan Problem List 1. Acute kidney injury 2. Systolic congestive heart failure with reduced left ventricular function, NYHA class 2 3. Morbid obesity with BMI of 40.0-44.9, adult Patient condition Improving Plan: initiate discharge plan This inpt stay is expected to cross 2 MNs from start of care Yes at 0724
[2016-09-29] MEDS ORDERED: [UNRECOGNIZED DRUG - OTHER] PO (07:26)
--- NOTE | 2016-09-29 07:28 | DISCHARGE SUMMARY STANDARD ---
Demographics Admit date: 09/26/16 Discharge date: 09/29/16 History of present illness History of present illness 75-year-old white female admitted from my office with prerenal azotemia/acute kidney injury with creatinine at 3.7, far above her baseline of 1.8. She had recently been started on dual diuretic therapy for congestive heart failure per cardiology service. She was admitted for IV fluids and medication adjustment. Please see scanned H and P for details. Hospital Course Hospital Course: Patient was admitted, hydrated gently. Creatinine dropped in a stepwise fashion and yesterday and today is down to her normal baseline. Kidney ultrasound was unremarkable. Chest x-rays were unremarkable and echocardiogram showed no change. Patient responded well symptomatically with the holding of diuretics. Valsartan/sacubitril started twice a day with good resolution of blood pressure issues and she tolerated this well. Her aged has receptor luiz and diuretics were held. She'll be discharged home on her calcium channel luiz, diabetic medications and her new twice a day congestive heart failure medication close follow-up in my office with labs. Discharge diagnoses Problem List 1. Acute kidney injury 2. Systolic congestive heart failure with reduced left ventricular function, NYHA class 2 3. Morbid obesity with BMI of 40.0-44.9, adult Medications Medications: Discharge meds are as noted. Follow up Follow up in office in: 4 DAYS with: Sergio Baltazar MD at [id number]
[2016-09-29 07:43] VITALS: BP 153/45
== END 2016-09-29 08:20 | disposition home or self-care (01) | DRG 683 ==
LOC: 2ND 10:34
PROVIDERS: Internal Medicine Adolescent Medicine
DX: N17.9 Acute kidney failure, unspecified (principal); I50.20 Unspecified systolic (congestive) heart failure; E11.9 Type 2 diabetes mellitus without complications; I10 Essential (primary) hypertension; Z95.5 Presence of coronary angioplasty implant and graft; I25.10 Atherosclerotic heart disease of native coronary artery without angina pectoris
CPT/HCPCS: J2405

== ENCOUNTER → 2016-10-09 | Outpatient (CLI) | payer MEDICARE ==
[~2016-10-09] MED LIST changes: +IPRATROPIUM BROM3 M1 IH; +NITROGLYCERIN0.4 MG SL; +[UNRECOGNIZED DRUG - OTHER] PO
[2016-10-09 13:44] LABS: BUN 29 mg/dL (7-18)
[2016-10-09 13:48] LABS: GFR (ESTIMATED) 27 ML/MIN (59-)
[2016-10-09 13:56] LABS: HEMOGLOBIN 11.4 g/dL (12.2-16.2); LYMPH # 1.4 K/mm3 (0.7-4.5); LYMPH % 24.5 % (10-50.0)
== END ==
LOC: CARL-LAB 08:13
PROVIDERS: Internal Medicine Adolescent Medicine
DX: N17.9 Acute kidney failure, unspecified (principal); I50.43 Acute on chronic combined systolic (congestive) and diastolic (congestive) heart failure

== ENCOUNTER → 2017-02-12 | Outpatient (CLI) | payer MEDICARE ==
[2017-02-12 13:28] LABS: HEMOGLOBIN 10.7 g/dL (12.2-16.2); LYMPH # 1.6 K/mm3 (0.7-4.5); LYMPH % 32.9 % (10-50.0)
[2017-02-12 13:51] LABS: BUN 28 mg/dL (7-18)
[2017-02-12 13:53] LABS: GFR (ESTIMATED) 29 ML/MIN (59-)
== END ==
LOC: CARL-LAB 08:13
PROVIDERS: Internal Medicine Adolescent Medicine
DX: I50.43 Acute on chronic combined systolic (congestive) and diastolic (congestive) heart failure (principal); E11.9 Type 2 diabetes mellitus without complications